=== PATIENT | female | born 1935 | race Caucasian/White ===

== ENCOUNTER → 2016-10-17 | Outpatient (CLI) | payer OTHER | END | disposition home or self-care (01) | LOC: GMAB 10:34 | PROVIDERS: ATTEND Family Medicine | DX: E78.2 Mixed hyperlipidemia (principal) ==

== ENCOUNTER → 2016-11-29 | Outpatient (CLI) | payer OTHER | LOC: GMAB 12:50 | PROVIDERS: ATTEND Family Medicine | DX: G60.3 Idiopathic progressive neuropathy (principal) ==

== ENCOUNTER → 2016-12-20 | Outpatient (CLI) | payer OTHER ==
--- NOTE | 2016-12-23 08:54 | MRI ---
EXAM DESCRIPTION: Lumbar Spine w/o Contrast CLINICAL HISTORY: RADICULOPATHY. Low back pain with pain down left leg. COMPARISON: None Available. TECHNIQUE: MRI of the lumbar spine is performed according to our usual protocol with axial and sagittal multi sequence imaging. FINDINGS: The designated L5-S1 disc space is on axial T2 image 3. There is trace retrolisthesis of L4 on L5. Vertebral body stature is maintained. There is no acute fracture or destructive osseous lesion. The conus medullaris terminates normally. There are several bilateral renal cysts. There is also a mildly heterogeneous T2 intense lesion in the posterior cortex of the right kidney measuring about 1 cm which is indeterminate. L1-2: Mild facet hypertrophy. Otherwise no significant findings. L2-3: Mild disc desiccation and mild disc narrowing. Mild facet hypertrophy. Minimal disc bulge with no spinal canal or neural foraminal stenosis. L3-4: Disc desiccation. Disc height is preserved. Mild facet hypertrophy with ligamentum flavum thickening. 2 mm posterior disc bulge with no spinal canal or neural foraminal stenosis. L4-5: Disc desiccation with severe disc narrowing. Mixed Modic endplate changes with Schmorl's nodes along both endplates. Moderate facet hypertrophy with ligamentum flavum thickening. 3 mm leftward eccentric disc osteophyte complex with mild left greater than right neural foraminal stenosis and mild left lateral recess narrowing. Material abuts the transiting left L5 nerve root in the lateral recess. The spinal canal is patent. L5-S1: Disc desiccation with moderate disc narrowing. Schmorl's node along the inferior L5 endplate. Moderate facet hypertrophy. 3 mm posterior disc osteophyte complex. Mild right greater than left neural foraminal stenosis. The spinal canal is patent. IMPRESSION: 1. Multilevel disc degeneration and multilevel moderate hypertrophic facet degenerative changes in the lumbar spine as described above. At L4-L5, there is mild left greater than right neural foraminal stenosis and mild left lateral recess narrowing. Material abuts the transiting left L5 nerve root in the lateral recess without significant displacement. 2. At L5-S1, there is mild right greater than left neural foraminal stenosis. 3. Several renal cysts, with a 1 cm focus in the posterior cortex of the left kidney which is indeterminate. Recommend follow-up renal ultrasound for further evaluation. 4. Other findings as above. Electronically signed by: Porfirio Holt MD 12/23/2016 8:53 AM CDT
== END | disposition home or self-care (01) ==
LOC: MRI 09:41
PROVIDERS: ATTEND Family Medicine
DX: M54.16 Radiculopathy, lumbar region (principal)

== ENCOUNTER → 2017-01-06 | Outpatient (CLI) | payer OTHER ==
--- NOTE | 2017-01-07 08:17 | US ---
EXAM DESCRIPTION: Renal ultrasound CLINICAL HISTORY: CYST OF KIDNEY COMPARISON: MRI lumbar spine 12/20/2016 TECHNIQUE: Routine sonographic images of the kidneys. FINDINGS: Right kidney: The right kidney measures 9.9 x 4.8 x 4.9 cm. A few anechoic cysts are demonstrated in the right kidney, which measure up to 1.6 cm. No hydronephrosis. Left kidney: The left kidney measures 8.7 x 5.6 x 5.6 cm. A few anechoic cysts are demonstrated in the left kidney which measure up to 1.6 cm. The lesion on the posterior cortex seen on the prior exam is not definitively seen by ultrasound. IMPRESSION: 1. Bilateral renal cysts. 2. The lesion along the posterior cortex is not definitively seen. Recommend either further evaluation with CT abdomen without and with intravenous contrast, renal mass protocol, versus short interval renal ultrasound follow-up in 6 months to exclude a solid lesion. Electronically signed by: Porfirio Holt MD 01/07/2017 8:15 AM CDT
== END | disposition home or self-care (01) ==
LOC: US 10:21
PROVIDERS: ATTEND Family Medicine
DX: N28.1 Cyst of kidney, acquired (principal)

== ENCOUNTER → 2017-01-13 | Outpatient (CLI) | payer OTHER ==
--- NOTE | 2017-01-13 13:08 | CT ---
EXAM DESCRIPTION: CT abdomen and pelvis without and with contrast CLINICAL HISTORY: RENAL MASS COMPARISON: MRI lumbar spine [address] 12/19/2014 TECHNIQUE: Pre and postcontrast spiral CT abdomen and pelvis with coronal and sagittal reformatted images. This exam was performed according to our departmental dose-optimization program, which includes automated exposure control, adjustment of the mA and/or kV according to patient size and/or use of iterative reconstruction technique. FINDINGS: The small exophytic 8 mm lesion lower pole left kidney is seen on previous CT unchanged thin size or appearance, partially visualized. No diagnostic contrast enhancement. The appearance is consistent with a small cyst. There are 2 additional cysts in the upper lateral left kidney. No suspicious solid renal mass lesion on the left Right lower pole cyst 9 mm. Upper pole 3 mm cyst. No solid right renal mass lesion. No renal stone disease Visualized lung bases are clear. Heart size is normal. Small sliding-type hiatal hernia No mass lesion in the liver, spleen, pancreas or adrenal glands. No diagnostic abnormality of the gallbladder. No biliary or pancreatic duct dilation No mass lesion or inflammatory process identified in the stomach, small or large intestine. Extensive diverticulosis of the sigmoid colon. No diverticulitis Uterine mass lesion lower right myometrium about 1.8 cm, probably a fibroid. The endometrium appears slightly thickened for postmenopausal. 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 Osteopenia. Multilevel degenerative change in the spine IMPRESSION: The lower pole left renal lesion is a nonenhancing 8 mm lesion consistent with a renal cyst, not significantly changed compared to CT from 12/19/2014. No suspicious renal mass lesion Consider endovaginal pelvic sonogram evaluation of the endometrium. The endometrium appears slightly thickened for postmenopausal. There is also a uterine mass lesion consistent with fibroid Electronically signed by: Joe Epstein MD 01/13/2017 1:07 PM CDT
== END | disposition home or self-care (01) ==
LOC: FT 13:10
PROVIDERS: ATTEND Family Medicine
DX: D41.00 Neoplasm of uncertain behavior of unspecified kidney (principal)

== ENCOUNTER → 2018-04-21 | Outpatient (CLI) | payer OTHER | LOC: GMAE 11:07 | PROVIDERS: ATTEND Family Medicine | DX: D51.9 Vitamin B12 deficiency anemia, unspecified (principal); Z79.899 Other long term (current) drug therapy ==

== ENCOUNTER → 2018-04-27 | Outpatient (CLI) | payer OTHER | LOC: GMAE 14:08 | PROVIDERS: ATTEND Family Medicine | DX: R94.6 Abnormal results of thyroid function studies (principal) ==

== ENCOUNTER 2018-05-14 04:28 | Observation (INO) | payer OTHER ==
[2018-05-14] MEDS ORDERED: PROMETHAZINE HCL INJ 25 MG in SODIUM CHLORIDE 0.9% 50ML 50 ML IVPB ONE (04:59)
[2018-05-14] MEDS ORDERED: SODIUM CHLORIDE 0.9% 1000ML 1,000 ML IVS ONE ×2 (04:59→06:41)
[2018-05-14] MEDS ORDERED: DIPHENOXYLATE HCL/ATROPINE 2.5 MG TAB PO ONE ×2 (04:59→06:41)
[2018-05-14] MEDS ORDERED: PROMETHAZINE HCL INJ 25 MG/ML VIAL ONE ×2 (05:01→05:03)
[2018-05-14] MEDS ORDERED: SODIUM CHLORIDE 0.9% 50ML 50 ML ONE (05:03)
--- NOTE | 2018-05-14 05:03 | ED.PDOC ---
History of Present Illness - General Chief Complaint: GI Problem Stated Complaint: N/V/D Time Seen by Provider: 05/14/18 04:48 Source: patient Exam Limitations: no limitations - History of Present Illness Initial Comments: the patient is an 82-year-old female lives alone presenting after 6-8 hours of nausea vomiting diarrhea. She denies blood in either. She was feeling fine prior. No history of any chronic abdominal issues or surgeries. No abdominal pain. She has had some chills but no definite fevers. She presented after she became significantly weak and dizzy at home by herself. She is reporting significantly dry mouth and her mucous membranes are indeed dry. No new pain elsewhere. No sore throat or runny nose. No cough. No syncope but questionable near syncope. Timing/Duration: other - 6-8 hours Severity: moderate Improving Factors: nothing Worsening Factors: nothing Associated Symptoms: fever/chills, loss of appetite, malaise, nausea/vomiting, weakness Allergies/Adverse Reactions: Allergies NO KNOWN ALLERGY Allergy (Verified 05/14/18 04:43) Home Medications: Ambulatory Orders Celecoxib [Celebrex] 200 mg PO DAILY 05/14/18 Gabapentin 05/14/18 Review of Systems - Review of Systems Constitutional: States: malaise, weakness - generalized EENTM: States: no symptoms reported Respiratory: States: no symptoms reported Cardiology: States: no symptoms reported Gastrointestinal/Abdominal: States: diarrhea, nausea, vomiting Genitourinary: States: no symptoms reported Musculoskeletal: States: no symptoms reported Skin: States: no symptoms reported Neurological: States: no symptoms reported Endocrine: States: no symptoms reported All other Systems: No Change from Baseline Past Medical History (General) - Patient Medical History Hx Seizures: No Hx Stroke: No Hx Dementia: No Hx Asthma: No Hx of COPD: No Hx Cardiac Disorders: No Hx Congestive Heart Failure: No Hx Pacemaker: No Hx Hypertension: No Hx Thyroid Disease: No Hx Diabetes: No Hx Gastroesophageal Reflux: No Hx Renal Disease: No 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 Hx of HIV: No Hx Hepatitis C: No Hx MRSA: No - Vaccination History Hx Tetanus, Diphtheria Vaccination: Yes Hx Influenza Vaccination: Yes - Social History Hx Tobacco Use: No Hx Alcohol Use: No Hx Substance Use: No Hx Depression: No Hx Physical Abuse: No Hx Emotional Abuse: No Hx Suspected Abuse: No Family Medical History - Family History Mother Family History: No Known Living Status: Age at (years of age): 89 Physical Exam - Physical Exam General Appearance: Alert, Anxious Eye Exam: bilateral normal Ears, Nose, Throat: hearing grossly normal, normal pharynx - dry mucous membranes Neck: full range of motion, supple Respiratory: lungs clear, normal breath sounds, no respiratory distress, no accessory muscle use Cardiovascular/Chest: normal peripheral pulses, regular rate, rhythm, no edema Peripheral Pulses: radial,right: 2+, radial,left: 2+ Gastrointestinal/Abdominal: non tender - no palpable mass. No rebound or peritoneal signs., soft Rectal Exam: deferred Back Exam: no CVA tenderness, no vertebral tenderness Extremity: non-tender, normal inspection, no pedal edema, no calf tenderness, normal capillary refill Neurologic: hemmer lockstitch II-XII nml as tested, alert, normal mood/affect, oriented x 3 Skin Exam: pallor Comments: Vital Signs - 24 hr 05/14/18 04:35 Temperature 96.9 F L Pulse Rate [ 88 monitor] Respiratory 20 Rate Blood Pressure 178/99 [Left Arm] O2 Sat by Pulse 99 Oximetry Progress - Progress Progress: 05/14/18 06:50 the patient is an 82-year-old female presenting to the emergency room secondary to nausea vomiting and diarrhea starting late last night. She has significant dehydration and some mild hypomagnesemia. We have largely been able to control the nausea with medications however she is still having a fair amount of diarrhea. a second dose of Lomotil has been ordered. She is significantly weak and tired. She would be at very high risk of a fall or decompensating at home. For this reason primarily the patient is going to be admitted for continued slow IV hydration and symptomatic control. Probably this is most likely simply a gastroenteritis either viral or bacterial. She does have a history of diverticulitis but she is not really having any fever or more localized abdominal pain at this time. Urinalysis and stool studies are still pending. A C. difficile has been ordered. as of now no antibiotics have been placed on the patient. Admit for continued care. At this point in time she is unable to perform her activities of daily living without some assistance. the patient does also have a mildly low magnesium level which will need to be c orrected. Blood pressures have been moderately elevated however the patient has been in some duress on most of the checks. This will need to be followed and treated if they fail to improve with patient relaxation.05/14/18 06:54 - Results/Orders Results/Orders: Laboratory Tests 05/14/18 05/14/18 05/14/18 04:55 04:55 04:55 WBC 9.7 RBC 4.72 Hgb 14.5 Hct 43.6 MCV 92.3 MCH 30.8 MCHC 33.3 RDW 13.7 Plt Count 212 MPV 9.5 Absolute Neuts (auto) 8.80 H Absolute Lymphs (auto) 0.30 L Absolute Monos (auto) 0.50 Absolute Eos (auto) 0.10 Absolute Basos (auto) 0.00 Neutrophils % 90.4 H Lymphocytes % 3.6 L Monocytes % 5.1 Eosinophils % 0.6 L Basophils % 0.3 Sodium 139 Potassium 3.5 L Chloride 104 Carbon Dioxide 24 Anion Gap 14.5 BUN 21 H Creatinine 0.67 BUN/Creatinine Ratio 31.3 H Random Glucose 192 H Serum Osmolality 285.7 Calcium 9.3 Magnesium 1.5 L Total Bilirubin 1.6 H AST 25 ALT 14 Alkaline Phosphatase 79 Serum Total Protein 7.9 Albumin 4.4 Globulin 3.5 Albumin/Globulin Ratio 1.3 Amylase 73 Lipase 46 Urinalysis results, C. difficile and stool culture are of course still pending at this time. Acute abdominal series is negative for acute pathology. Departure - Departure Clinical Impression: Acute gastroenteritis, Inability to perform activities of daily living, Moderate dehydration, Hypomagnesemia Disposition: Admit Patient Referrals: RUI LOWE MD [Primary Care Provider] - 1-2 Weeks Home Medications: Ambulatory Orders Celecoxib [Celebrex] 200 mg PO DAILY 05/14/18 Gabapentin 05/14/18 Decision To Admit - Decistion To Admit Decision to Admit Reason: Medical Nature Decision to Admit Date: 05/14/18 Decision to Admit Time: 06:55
--- NOTE | 2018-05-14 05:26 | RAD ---
ABDOMINAL SERIES. 05/14/2018 at 0454 hours. CLINICAL HISTORY: Nausea, vomiting, diarrhea for 8 hours. COMPARISON: CT abdomen and pelvis without and with contrast 01/13/2017. TECHNIQUE: Single frontal chest and upright and supine AP images of the abdomen. Findings CHEST: Normal cardiac size. Normal cardiomediastinal silhouette. Normal pulmonary vascularity. Lungs are clear. Lungs are hyperinflated. Pleural spaces are clear. ABDOMEN: There is a paucity of bowel air. No free air. No abnormal bowel displacement. The liver appears enlarged with the inferior tip extending to the right iliac bone. There are vascular calcifications identified. No free air. There is generalized decreased bone density. Unremarkable soft tissues. Mild lower lumbar and bilateral hip degenerative change. IMPRESSION: 1. COPD. No acute chest disease. 2. No acute finding within the abdomen. 3. Atherosclerotic disease. Electronically signed by: Daria Staley DO 05/14/2018 5:25 AM [facility]
[2018-05-14] MEDS ORDERED: ONDANSETRON INJ 4 MG/2 ML VIAL IV ONE (06:42)
[2018-05-14] MEDS ORDERED: MAGNESIUM SULFATE PREMIX 2GM 2 GM in PREMIX BAG 1 BAG IVPB ONE (06:56)
[2018-05-14] MEDS ORDERED: MAGNESIUM SULFATE PREMIX 2GM 50 ML IVPB ONE (09:11)
--- NOTE | 2018-05-14 09:40 | HP ---
SUPERVISING PHYSICIAN: Joe Nguyen M.D. CHIEF COMPLAINT: Nausea, vomiting and diarrhea. HISTORY OF PRESENT ILLNESS: This is an 82 year-old female patient who lives alone. She had had 6 to 8 hours of nausea, vomiting and diarrhea. She drove herself to the Emergency Room because she was feeling so weak. She also had some mild dizziness and multiple loose stools as well as multiple bouts of emesis. In the Emergency Room her vital signs were temperature 96.9 with heart rate 105, blood pressure 183/85, respiratory rate 20, O2 sat was 99%. Lab was done and her CBC was basically within normal limits. She did have a left shift on her differential. Sodium 139, potassium 3.5, chloride 104, carbon dioxide 24, calcium 9.3, magnesium 1.5. Sugar was 192. Total bilirubin 1.6, lipase 46. Urine showed 40 of ketones with moderate urine blood and 20 to 30 urine RBCs. Abdominal x-ray showed chronic obstructive pulmonary disease. No acute chest disease. No acute findings within the abdomen and atherosclerotic disease. In the E. R. she was given some Phenergan as well as some fluids. She was also given some magnesium sulfate and some Lomotil. I was called for hospital admission. PAST MEDICAL HISTORY: 1. Melanoma of the arm. 2. Neuropathy of the feet. 3. Osteoarthritis. PAST SURGICAL HISTORY: 1. Back surgery in August. 2. Cataract surgery. 3. Retina surgery. OUTPATIENT MEDICATIONS: 1. Celebrex. 2. Gabapentin. ALLERGIES: NO KNOWN DRUG ALLERGIES. SOCIAL HISTORY: She lives in [place]. She denies tobacco, ETOH or illicit drug use. REVIEW OF SYSTEMS: GENERAL: Positive for malaise, weakness and chills. Negative for fever or weight changes. HEENT: Negative for sinus symptoms, ear pain, vision changes or sore throat. RESPIRATORY: Negative for coughing, wheezing, shortness of breath. CARDIAC: Negative for palpitations, tachycardia or chest pain. GASTROINTESTINAL: As per history of present illness. GENITOURINARY: Negative for dysuria, polyuria, hematuria. MUSCULOSKELETAL: Negative for arthralgias, myalgias or back pain. SKIN: Negative for lesions or rashes. NEUROLOGIC: Positive for some mild dizziness. Negative for headaches or seizures. PHYSICAL EXAMINATION: VITAL SIGNS: Temperature 99, heart rate runs between 84 and 107. Blood pressure is 147/80, respiratory rate 20, O2 sat 97% on room air. GENERAL: This is an 82 year-old female patient lying in her hospital bed. She is in no acute distress. HEENT: Normocephalic and atraumatic. Pupils are equal and reactive. Oropharynx is clear. Oral mucous membranes are dry. NECK: Supple without mass. RESPIRATORY: Essentially clear to auscultation bilaterally. CHEST: There is equal rise and fall of the chest with inspiration and expiration. CARDIOVASCULAR: Regular rate and rhythm. GASTROINTESTINAL: Abdomen is soft, nondistended. It is very mildly but diffusely tender. There is no CVA tenderness. Bowel sounds are positive. EXTREMITIES: No cyanosis, clubbing, or edema. NEUROLOGIC: She is awake, alert and oriented times three. Cranial nerves II- XII are grossly intact. SKIN: Cool and dry. LABORATORY: Labs and films are as per the history of present illness. ASSESSMENT: 1. Gastroenteritis with nausea, vomiting, diarrhea. 2. Dehydration secondary to #1. 3. Neuropathy of lower extremities on Gabapentin. 4. History of osteoarthritis on Celebrex. PLAN: We will place the patient in Observation. Will give her fluids overnight and recheck her labs in the morning. At this point her abdomen is non-tender and she has had no diarrhea or vomiting since admitted to the floor. She does have antiemetics as well as a proton pump inhibitor for ulcer prophylaxis and Lovenox for deep venous thrombosis prophylaxis. Hopefully after gentle hydration she can be discharged home tomorrow with close followup with her primary care physician, Dr. Frey. Otherwise we will continue to monitor closely and follow as needed. Dr. Nguyen is the collaborating physician available for consultation. #[id number] [facility]
[2018-05-14] MEDS ORDERED: SODIUM CHLORIDE 0.9% (FLUSH) 10 ML SYG IV PRN ×2 (10:58→11:01)
[2018-05-14] MEDS ORDERED: IV SET AND CAP CHANGE INJ INJ SCH ×2 (11:00→11:30)
[2018-05-14] MEDS ORDERED: ONDANSETRON INJ 4 MG/2 ML VIAL IV PRN (17:13)
[2018-05-14] MEDS ORDERED: GABAPENTIN 100 MG CAP ONE (19:24)
[2018-05-14] MEDS ORDERED: ENOXAPARIN SODIUM 40 MG/0.4 ML SYG SUBCU SCH (19:30)
[2018-05-14] MEDS ORDERED: PANTOPRAZOLE SODIUM IV 40 MG VIAL IV SCH (19:30)
[2018-05-14] MEDS: KCL 20MEQ/0.45% NS 1,000 ML IVS PRN (19:31)
[2018-05-14] MEDS ORDERED: GABAPENTIN 200 MG PO SCH (21:00)
[2018-05-15] MEDS: KCL 20MEQ/0.45% NS 1,000 ML IVS PRN (08:57)
[2018-05-15] MEDS ORDERED: PANTOPRAZOLE SODIUM IV 40 MG VIAL IV SCH (09:30)
[2018-05-15 10:38] VITALS: BP 131/77; TEMP 98; O2SAT 97
[2018-05-15] MEDS ORDERED: GABAPENTIN 100 MG CAP PO SCH (21:00)
--- NOTE | 2018-05-25 18:17 | DS ---
SUPERVISING PHYSICIAN: Joe Nguyen M.D. DISCHARGE DIAGNOSIS: 1. Gastroenteritis with nausea, vomiting, diarrhea. 2. Dehydration secondary to #1. 3. Neuropathy of lower extremities on Gabapentin. 4. History of osteoarthritis on Celebrex. HISTORY OF PRESENT ILLNESS: This is an 82 year-old female patient who lives alone. She had had 6 to 8 hours of nausea, vomiting and diarrhea prior to admission to the . . She drove herself to the Emergency Room and she was feeling very weak. She had some mild dizziness and multiple loose stools as well as multiple bouts of emesis. In the Emergency Room her vital signs showed temperature 96.9 with heart rate 105, blood pressure 183/85, respiratory rate 20, O2 sat was 99%. Lab was done and CBC was basically within normal limits. She had a left shift on her differential. Sodium 139, potassium 3.5, chloride 104, carbon dioxide 24, calcium 9.3, magnesium 1.5. Sugar was 192. Total bilirubin 1.6, lipase 46. Urine showed 40 of ketones with moderate urine blood and 20 to 30 urine RBCs. Abdominal x-ray showed chronic obstructive pulmonary disease. No acute chest disease. No acute findings within the abdomen and atherosclerotic disease. She was given Phenergan in the Emergency Room as well as some fluids. She was also given some magnesium sulfate replacement as well as Lomotil. She was placed in observation in the hospital. HOSPITAL COURSE: The next evening she received fluids. She had no further diarrhea or vomiting after admission to the floor. She was placed on a proton pump inhibitor for ulcer prophylaxis and Lovenox for DVT prophylaxis. She was given fluids overnight. Her lab was rechecked this morning. WBCs did drop to 3.6. After hydration her hemoglobin was 11.8 with hematocrit 35.7. Electrolytes were basically within normal limits. She will be discharged home in stable condition. DISCHARGE PLAN: The patient will be discharged home in stable condition. She is to advance her diet as tolerated. She is also to increase her activity as tolerated. She has a followup appointment with Dr. Frey on 05/26/18 at 11:00 AM. She is to followup with Dr. Frey or come to the Emergency Room for any problems or complications. DISCHARGE MEDICATIONS: 1. Gabapentin. 2. Celebrex. #[id number] [facility]
== END 2018-05-15 12:51 | disposition home or self-care (01) ==
LOC: ER 04:28 → MS 09:36
PROVIDERS: ADMIT Nurse Practitioner Acute Care; ATTEND Nurse Practitioner Acute Care
DX: K52.9 Noninfective gastroenteritis and colitis, unspecified (principal); E86.0 Dehydration; E83.42 Hypomagnesemia; E87.6 Hypokalemia; G62.9 Polyneuropathy, unspecified; M19.90 Unspecified osteoarthritis, unspecified site; J44.9 Chronic obstructive pulmonary disease, unspecified; I70.0 Atherosclerosis of aorta; Z79.899 Other long term (current) drug therapy; Z85.820 Personal history of malignant melanoma of skin
CPT/HCPCS: 96361; 96366 ×2; 96367; 96365; 96375; 96376 ×2; 96372; J2405 ×2; J2550; J7030 ×2; A4216; J1650; J3475; J3480 ×2; 80053 ×2; 36415 ×3; 82150; 81001; 85025 ×2; 83690; 83735 ×2; 74019; 97116; G8978; G8979; G8980; 97162; 99285

== ENCOUNTER → 2018-05-26 | Outpatient (CLI) | payer OTHER | LOC: GMAE 15:04 | PROVIDERS: ATTEND Family Medicine | DX: E61.2 Magnesium deficiency (principal) ==

== ENCOUNTER 2018-08-24 14:16 | Emergency (ER) | payer OTHER ==
[2018-08-24 14:30] VITALS: TEMP 97
[2018-08-24] MEDS ORDERED: ONDANSETRON INJ 4 MG/2 ML VIAL IV ONE (14:45)
[2018-08-24] MEDS ORDERED: SODIUM CHLORIDE 0.9% 500ML 500 ML IVS ONE (14:51)
--- NOTE | 2018-08-24 14:55 | ED.PDOC ---
History of Present Illness - General Chief Complaint: General Stated Complaint: n/v, HTN, ekg changes Time Seen by Provider: 08/24/18 14:40 Source: patient Exam Limitations: no limitations - History of Present Illness Initial Comments: pT FELT SUDDENLY DIZZY AND NEAR SYNCOPAL AFTER EATING A LARGE LUNCH AT THE [email or web address] today. Pt went to a friend's house where found BP was elevated and she gebag having N/V. . She then went to her doctor's and BP was high and EKG was felt to be different from one done in 2011. Pt still has "rumbling" in her gut Timing/Duration: 1-3 hours Severity: severe Improving Factors: rest Worsening Factors: nothing Associated Symptoms: nausea/vomiting Allergies/Adverse Reactions: Allergies NO KNOWN ALLERGY Allergy (Verified 05/14/18 04:43) Home Medications: Ambulatory Orders Celecoxib [Celebrex] 200 mg PO NOON 05/14/18 Gabapentin 200 mg PO BEDTIME 05/14/18 Dicyclomine HCl [Bentyl] 20 mg PO Q6HR PRN #12 tab 08/24/18 Ondansetron Tab [Zofran Tab] 4 mg PO Q4HR PRN #15 tab 08/24/18 Review of Systems - Review of Systems Constitutional: States: weakness. Denies: chills, fever EENTM: States: no symptoms reported Respiratory: Denies: cough, orthopnea, short of breath Cardiology: Denies: chest pain, edema, syncope Gastrointestinal/Abdominal: States: nausea, vomiting. Denies: abdominal pain Genitourinary: States: no symptoms reported Musculoskeletal: States: no symptoms reported Skin: States: no symptoms reported Neurological: States: no symptoms reported. 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 Hx of HIV: No Hx Hepatitis C: No Hx MRSA: No - Vaccination History Hx Tetanus, Diphtheria Vaccination: Yes Hx Influenza Vaccination: Yes - Social History Hx Tobacco Use: No Hx Alcohol Use: No Hx Substance Use: No Hx Depression: No Hx Physical Abuse: No Hx Emotional Abuse: No Hx Suspected Abuse: No Family Medical History - Family History Mother Family History: No Known Living Status: Age at (years of age): 89 Physical Exam - Physical Exam General Appearance: Alert, Anxious, Restless Eye Exam: bilateral normal Ears, Nose, Throat: hearing grossly normal, normal ENT inspection, normal pharynx Neck: normal inspection Respiratory: chest non-tender, lungs clear, normal breath sounds, no respiratory distress Cardiovascular/Chest: normal peripheral pulses, regular rate, rhythm, no edema Gastrointestinal/Abdominal: non tender, soft, no organomegaly Extremity: normal range of motion, non-tender, normal inspection, no pedal edema Neurologic: instrumentation tech II-XII nml as tested, no motor/sensory deficits, alert, normal mood/affect, oriented x 3 Skin Exam: normal color, warm/dry Lymphatic: no adenopathy Progress - EKG/XRAY/CT EKG: Sinus, no ST T wave changes, Unchanged from - 03/05/2011 Departure - Departure Clinical Impression: Orthostatic dizziness Vomiting Qualifiers: Vomiting type: unspecified Vomiting Intractability: non-intractable Nausea presence: with nausea Qualified Code(s): R11.2 - Nausea with vomiting, unspecified Hypertension Qualifiers: Hypertension type: unspecified Qualified Code(s): I10 - Essential (primary) hypertension Disposition: Discharge to Home or Self Care Condition: Fair Departure Forms: ED Discharge - Pt. Copy, Patient Portal Self Enrollment Referrals: RUI LOWE MD [Primary Care Provider] - 1-2 Weeks Prescriptions: Ondansetron Tab [Zofran Tab] 4 mg PO Q4HR PRN #15 tab PRN Reason: Nausea Dicyclomine HCl [Bentyl] 20 mg PO Q6HR PRN #12 tab PRN Reason: Abdominal Cramping Home Medications: Ambulatory Orders Celecoxib [Celebrex] 200 mg PO NOON 05/14/18 Gabapentin 200 mg PO BEDTIME 05/14/18 Dicyclomine HCl [Bentyl] 20 mg PO Q6HR PRN #12 tab 08/24/18 Ondansetron Tab [Zofran Tab] 4 mg PO Q4HR PRN #15 tab 08/24/18
[2018-08-24 15:16] VITALS: O2SAT 97
[2018-08-24] MEDS ORDERED: DICYCLOMINE HCL 20 MG TAB PO ONE (15:58)
[2018-08-24 16:43] VITALS: BP 159/94
== END 2018-08-24 16:31 | disposition home or self-care (01) ==
LOC: ER 14:16
DX: R11.2 Nausea with vomiting, unspecified (principal); I10 Essential (primary) hypertension; I95.1 Orthostatic hypotension; Z85.820 Personal history of malignant melanoma of skin; Z79.899 Other long term (current) drug therapy
CPT/HCPCS: 36415; 80053; 84484; 85025; 93005; J2405; J7040

== ENCOUNTER → 2018-08-26 | Outpatient (CLI) | payer OTHER ==
--- NOTE | 2018-08-26 09:41 | US ---
EXAM DESCRIPTION: Renal Arteries CLINICAL HISTORY: 82 years Female, ELEVATED BP COMPARISON: None. FINDINGS: Right Upper right renal interlobar artery shows no delay of up stroke. Mid and lower right renal interlobar arteries are negative for delayed upstroke. Resistive index measurements vary from 71-77%, mildly increased. Right renal artery distally has a peak systolic velocity of 42 cm/s. Mid right renal artery peak systolic velocity of 39 cm/s and proximal right renal artery peak systolic velocity is 100 cm/s. Left Proximal left renal artery is not well seen. The mid left renal artery peak systolic velocity of 90 cm/s is noted with the distal left renal artery peak systolic velocity of 39 cm/s. Arterial artery level upper left renal artery shows no delay of up stroke. Mid and lower left renal arcuate artery spectral waveforms showed no delayed upstroke. Renal artery velocities are not considered increased. However aortic peak systolic velocity is needed for comparison. None of these submitted images include documentation of abdominal aortic Doppler interrogation. IMPRESSION: No identified evidence of renal artery stenosis. Electronically signed by: Jere Echols MD 08/26/2018 9:38 AM CDT
== END ==
LOC: US 08:24
PROVIDERS: ATTEND Family Medicine
DX: R03.0 Elevated blood-pressure reading, without diagnosis of hypertension (principal)

== ENCOUNTER 2018-12-27 16:41 | Emergency (ER) | payer OTHER ==
--- NOTE | 2018-12-27 17:48 | RAD ---
EXAM: XR Chest, 2 Views CLINICAL HISTORY: right lower rib pain after coughing TECHNIQUE: Frontal and lateral views of the chest. COMPARISON: No relevant prior studies available. FINDINGS: Limitations: None. Lungs: Chronic obstructive changes present with paucity of vasculature in the upper lobes right greater than left. No consolidation. Pleural space: Unremarkable. No pneumothorax. Heart: Unremarkable. No cardiomegaly. Mediastinum: Unremarkable. Bones/joints: Unremarkable. IMPRESSION: COPD. No acute findings. Electronically signed by: Kathleen Templeton MD 12/27/2018 5:47 PM CDT
--- NOTE | 2018-12-27 17:53 | ED.PDOC ---
History of Present Illness - General Chief Complaint: Respiratory Problem Stated Complaint: cough Time Seen by Provider: 12/27/18 17:07 Source: patient Exam Limitations: no limitations - History of Present Illness Initial Comments: the patient is an 83-year-old female presenting after an hour of sharp intermittent chest pain to the right anterolateral lower rib cage. It is worse with twisting and turning. It is worse with taking a breath. It is worse with palpation. she has had a mild cough for the last month. No history of any pulmonary emboli. No history of trauma. It seemed to start after a cough. Timing/Duration: 1 hour Severity: moderate Improving Factors: immobilization Worsening Factors: movement Associated Symptoms: denies symptoms Allergies/Adverse Reactions: Allergies NO KNOWN ALLERGY Allergy (Verified 05/14/18 04:43) Home Medications: Ambulatory Orders Celecoxib [Celebrex] 200 mg PO NOON 05/14/18 Gabapentin 200 mg PO BEDTIME 05/14/18 Dicyclomine HCl [Bentyl] 20 mg PO Q6HR PRN #12 tab 08/24/18 Ondansetron Tab [Zofran Tab] 4 mg PO Q4HR PRN #15 tab 08/24/18 Review of Systems - Review of Systems Constitutional: States: no symptoms reported EENTM: States: no symptoms reported Respiratory: States: cough Cardiology: States: chest pain Gastrointestinal/Abdominal: States: no symptoms reported Genitourinary: States: no symptoms reported Musculoskeletal: States: see HPI Skin: States: no symptoms reported Neurological: States: no symptoms reported Endocrine: States: no symptoms reported All other Systems: No Change from Baseline Past Medical History (General) - Patient Medical History Hx Seizures: No Hx Stroke: No Hx Dementia: No Hx Asthma: No Hx of COPD: No Hx Cardiac Disorders: No Hx Congestive Heart Failure: No Hx Pacemaker: No Hx Hypertension: No Hx Thyroid Disease: No Hx Diabetes: No Hx Gastroesophageal Reflux: Yes Hx Renal Disease: No 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 Hx of HIV: No Hx Hepatitis C: No Hx MRSA: No - Vaccination History Hx Tetanus, Diphtheria Vaccination: Yes Hx Influenza Vaccination: Yes Hx Pneumococcal Vaccination: Yes - Social History Hx Tobacco Use: No Hx Alcohol Use: No Hx Substance Use: No Hx Depression: No Hx Physical Abuse: No Hx Emotional Abuse: No Hx Suspected Abuse: No Family Medical History - Family History Mother Family History: No Known Living Status: Age at (years of age): 89 Physical Exam - Physical Exam General Appearance: Alert, Anxious, No apparent distress Eye Exam: bilateral normal Ears, Nose, Throat: hearing grossly normal, normal ENT inspection Neck: full range of motion, supple Respiratory: lungs clear, normal breath sounds, no respiratory distress, no accessory muscle use, other - ee history of present illness Cardiovascular/Chest: normal peripheral pulses, no edema, other - regular rate Peripheral Pulses: radial,right: 2+, radial,left: 2+, dorsalis pedis,right: 2+, dorsalis pedis,left: 2+ Gastrointestinal/Abdominal: non tender, soft Rectal Exam: deferred Back Exam: no CVA tenderness, no vertebral tenderness Extremity: normal range of motion, non-tender, normal inspection, no pedal edema, normal capillary refill Neurologic: diving fisher II-XII nml as tested, alert, normal mood/affect, oriented x 3 Skin Exam: normal color Comments: Vital Signs - 24 hr 12/27/18 17:14 Temperature 97.5 F L Pulse Rate [ 90 Left Brachial] Respiratory 20 Rate Blood Pressure 158/84 [Left Arm] O2 Sat by Pulse 95 Oximetry Progress - Progress Progress: 12/27/18 17:53 the patient is an 83-year-old female presenting with right anterolateral acute onset chest discomfort that is sharp in nature and worse with movement and breathing. This is clinically most consistent with an intercostal muscle strain. Chest x-ray shows no evidence of any significant fracture or pneumothorax or underlying pneumonia. The patient does need to take slow deep breaths to prevent atelectasis and reduce the risk of pneumonia formation over time. [id number] anti-inflammatory such as Aleve or Motrin can help reduce discomfort as well. Topical heat may also help in this case. ER warnings were given for any significant worsening. Follow up with primary care doctor later in the coming week. Departure - Departure Clinical Impression: Intercostal muscle strain Qualifiers: Encounter type: initial encounter Qualified Code(s): S29.011A - Strain of muscle and tendon of front wall of thorax, initial encounter Disposition: Discharge to Home or Self Care Condition: Fair Departure Forms: ED Discharge - Pt. Copy, Patient Portal Self Enrollment Diet: regular diet Activity: increase activity as tolerated Referrals: RUI LOWE MD [Primary Care Provider] - 1-2 Weeks Home Medications: Ambulatory Orders Celecoxib [Celebrex] 200 mg PO NOON 05/14/18 Gabapentin 200 mg PO BEDTIME 05/14/18 Dicyclomine HCl [Bentyl] 20 mg PO Q6HR PRN #12 tab 08/24/18 Ondansetron Tab [Zofran Tab] 4 mg PO Q4HR PRN #15 tab 08/24/18 Additional Instructions: the patient is an 83-year-old female presenting with right anterolateral acute onset chest discomfort that is sharp in nature and worse with movement and breathing. This is clinically most consistent with an intercostal muscle strain. Chest x-ray shows no evidence of any significant fracture or pneumothorax or underlying pneumonia. The patient does need to take slow deep breaths to prevent atelectasis and reduce the risk of pneumonia formation over time. [id number] anti-inflammatory such as Aleve or Motrin can help reduce discomfort as well. Topical heat may also help in this case. ER warnings were given for any significant worsening. Follow up with primary care doctor later in the coming week.
[2018-12-27 18:24] VITALS: BP 151/85; TEMP 98.1; O2SAT 97
== END 2018-12-27 18:25 | disposition home or self-care (01) ==
LOC: ER 16:41
DX: S29.011A Strain of muscle and tendon of front wall of thorax, initial encounter (principal); R05 Cough; K21.9 Gastro-esophageal reflux disease without esophagitis; Z85.820 Personal history of malignant melanoma of skin; Z79.899 Other long term (current) drug therapy; X58.XXXA Exposure to other specified factors, initial encounter; Y92.9 Unspecified place or not applicable

== ENCOUNTER → 2019-12-16 | Outpatient (CLI) | payer OTHER | LOC: GMAE 10:28 | PROVIDERS: ATTEND Family Medicine | DX: Z79.899 Other long term (current) drug therapy (principal); R94.6 Abnormal results of thyroid function studies ==